=== PATIENT | female | born 1995 | race African-American/Black ===

== ENCOUNTER 2017-09-21 23:47 | Emergency (ER) | payer OTHER ==
[2017-09-21 23:55] VITALS: BP 103/54; PULSE 86; TEMP 98.1; BMI 21.6
--- NOTE | 2017-09-22 00:19 | PDOC ---
History of Present Illness - History of Present Illness Initial Comments: 09/22/17 00:23 The patient is a 22 year old female, with no significant PMH, who presents to the emergency department with 2 hours of right arm pain. The patient states she was driving when she noticed the right arm pain prompting her to snout puller and check her arm. The patient states she noticed a lump on the right upper extremity which prompted her to come to the ED for evaluation. The patient denies any recent injuries or trauma. The patient denies chest pain, shortness of breath, headache and dizziness. Denies fever, chills, nausea, vomit, diarrhea and constipation. Denies dysuria, frequency, urgency and hematuria. Allergies: Penicillins Past surgical history: <Jeovanny Matthews - Last Filed: 09/22/17 00:27> - General History Source: Patient <Colt Alvarez - Last Filed: 09/22/17 00:56> - General Chief Complaint: Pain, Acute Stated Complaint: LUMP ON RT ARM Time Seen by Provider: 09/21/17 23:59 Past History <Jeovanny Matthews - Last Filed: 09/22/17 00:27> - Past Medical History Asthma: No Cancer: No Cardiac Disorders: No COPD: No Diabetes: No HTN: No Seizures: No Thyroid Disease: No - Suicide/Smoking/Psychosocial Hx Smoking History: Never smoked Have you smoked in the past 12 months: No Hx Alcohol Use: No Drug/Substance Use Hx: No Substance Use Type: None Hx Substance Use Treatment: No <Colt Alvarez - Last Filed: 09/22/17 00:56> - Past Medical History Allergies/Adverse Reactions: Allergies Allergy/AdvReac Type Severity Reaction Status Date / Time Penicillins Allergy Verified 09/21/17 23:54 Home Medications: Ambulatory Orders No Home Medications 0 dose .ROUTE UTDICT 07/07/13 Review of Systems - Review of Systems Comments:: 09/22/17 00:23 CONSTITUTIONAL: Absent: fever, no chills, no fatigue EYES: Absent: visual changes ENT: Absent: ear pain, no sore throat CARDIOVASCULAR: Absent: chest pain, no palpitations RESPIRATORY: Absent: cough, no SOB GI: Absent: abdominal pain, no nausea, no vomiting, no constipation, no diarrhea GENITOURINARY: Absent: dysuria, no frequency, no hematuria MUSKULOSKELETAL: Present: (+) Right upper extremity lump and pain. Absent: back pain, no arthralgia. SKIN: Absent: rash NEURO: Absent: headache <Jeovanny Matthews - Last Filed: 09/22/17 00:27> *Physical Exam - Vital Signs Last Vital Signs Temp Pulse Resp BP Pulse Ox 98.1 F 86 18 103/54 100 09/21/17 23:53 09/21/17 23:53 09/21/17 23:53 09/21/17 23:53 09/21/17 23:53 - Physical Exam Comments: 09/22/17 00:27 GENERAL: Well-appearing, well-nourished. No apparent distress. HEENT: Normocephalic, atraumatic. PERRL, EOM intact. CARDIOVASCULAR: Normal S1, S2. Regular rate and rhythm. PULMONARY: Clear to auscultation bilaterally. ABDOMEN: Soft, non-distended, non-tender. EXTREMITIES: +Slight ecchymosis RUE. Normal ROM in all four extremities. No gross deformities. SKIN: Warm, dry. No rash NEUROLOGICAL: No focal neurological deficits. <Jeovanny Matthews - Last Filed: 09/22/17 00:27> - Vital Signs Last Vital Signs Temp Pulse Resp BP Pulse Ox 98.1 F 86 18 103/54 100 09/21/17 23:53 09/21/17 23:53 09/21/17 23:53 09/21/17 23:53 09/21/17 23:53 <Colt Alvarez - Last Filed: 09/22/17 00:56> *DC/Admit/Observation/Transfer - Attestations Scribe Attestion: 09/22/17 00:24 Documentation prepared by Jeovanny Matthews, acting as infertility medical assistant for Colt Alvarez DO. <Jeovanny Matthews - Last Filed: 09/22/17 00:27> - Discharge Dispostion Decision to Admit order: No <Colt Alvarez - Last Filed: 09/22/17 00:56> Diagnosis at time of Disposition: Hematoma - Discharge Dispostion Disposition: HOME Condition at time of disposition: Stable - Referrals Referrals: Kalyn Alanis MD [Staff Physician] - - Patient Instructions Printed Discharge Instructions: DI for Hematoma (Bruise) Additional Instructions: Apply ice to area to make it feel better. Return if area becomes painful and hot.
== END 2017-09-22 01:08 | disposition home or self-care (01) ==
LOC: JER 23:47
DX: S40.021A Contusion of right upper arm, initial encounter (principal); X58.XXXA Exposure to other specified factors, initial encounter; Y93.9 Activity, unspecified; Y92.810 Car as the place of occurrence of the external cause; Y99.8 Other external cause status
CPT/HCPCS: 99281-25

== ENCOUNTER 2017-11-20 11:41 | Emergency (ER) | payer OTHER ==
[2017-11-20 11:52] VITALS: BP 120/59; PULSE 100; TEMP 100; BMI 21.9
--- NOTE | 2017-11-20 12:12 | PDOC ---
History of Present Illness - General Chief Complaint: Sore Throat Stated Complaint: SORE THROAT, SOB - History of Present Illness Initial Comments: 22-year-old female presents for evaluation of sore throat and earache 2 days. She first noticed it after coming back from her cruise. She has no other associated symptoms. 11/20/17 12:10 Past History - Past Medical History Allergies/Adverse Reactions: Allergies Allergy/AdvReac Type Severity Reaction Status Date / Time Penicillins Allergy Verified 11/20/17 11:49 Home Medications: Ambulatory Orders No Home Medications 0 dose .ROUTE UTDICT 07/07/13 Asthma: No Cancer: No Cardiac Disorders: No COPD: No DVT: No Diabetes: No HTN: No Seizures: No Thyroid Disease: No - Suicide/Smoking/Psychosocial Hx Smoking History: Never smoked Have you smoked in the past 12 months: No Information on smoking cessation initiated: No Hx Alcohol Use: No Drug/Substance Use Hx: No Substance Use Type: None Hx Substance Use Treatment: No Review of Systems - Review of Systems HEENTM: Yes: Ear Pain, Throat Pain All Other Systems: Reviewed and Negative *Physical Exam - Vital Signs Last Vital Signs Temp Pulse Resp BP Pulse Ox 100.0 F H 100 H 18 120/59 100 11/20/17 11:50 11/20/17 11:50 11/20/17 11:50 11/20/17 11:50 11/20/17 11:50 - Physical Exam Comments: HEAD: NC/AT EYES: Conjuntiva clear Ears: Canals and TM's normal NOSE: No d/c THROAT: Moist mucous membrances, oral pharanx clear, uvula midline NECK: Supple without adenopathy CARDIAC: S1 S2 LUNGS: CTA Full and Equal breath sounds ABDOMEN: Soft NT ND MS: Full ROM in all joints without edema NEUROLOGIC: No gross sensory or motor deficits, NVID SKIN: Normal color and temperature no lesions or rashes 11/20/17 12:11 Medical Decision Making - Medical Decision Making This is a 22-year-old female with an upper respiratory infection I do not see the reason for antibiotics at this point she has basically a benign examination advised on Tylenol and Motrin and follow-up with her PCP. 11/20/17 12:11 *DC/Admit/Observation/Transfer Diagnosis at time of Disposition: URI (upper respiratory infection) - Discharge Dispostion Disposition: HOME Condition at time of disposition: Stable Decision to Admit order: No - Referrals Referrals: Maria Luisa Mariano MD [Primary Care Provider] - - Patient Instructions Printed Discharge Instructions: DI for Viral Upper Respiratory Infection -- Adult Additional Instructions: Return to the emergency room should symptoms worsen or go unresolved. Follow-up with her primary care physician in one to 2 days for further evaluation and treatment options. He may continue to take Tylenol and Motrin for any discomfort. - Post Discharge Activity
== END 2017-11-20 12:15 | disposition home or self-care (01) ==
LOC: JERFT 11:41
DX: J06.9 Acute upper respiratory infection, unspecified (principal)
CPT/HCPCS: 99281-25

== ENCOUNTER 2019-08-29 12:20 | Inpatient (IN) | payer OTHER ==
[2019-08-29 13:10] LABS: BASO % 0.3 % (0-2.0); EOS % 0.3 % (0-4.5); HEMATOCRIT 34.3 % (32.4-45.2); HEMOGLOBIN 11.1 GM/dL (10.7-15.3); LYMPH % 11.2 % (8-40); MCH 26.9 pg (25.7-33.7); MCHC 32.5 g/dl (32.0-36.0); MONO % 5.1 % (3.8-10.2); NEUT % 83.1 % (42.8-82.8); PLATELET COUNT 179 K/MM3 (134-434); RBC 4.14 M/mm3 (3.60-5.2); RDW 13.6 % (11.6-15.6); WHITE BLOOD COUNT 11.2 K/mm3 (4.0-10.0)
[2019-08-29 13:16] LABS: INR 0.96 (0.83-1.09); PROTHROMBIN TIME (PATIENT) 11.3 SEC (9.7-13.0)
[2019-08-29 13:19] LABS: ACTIVATED PTT 26.7 SECONDS (25.2-36.5)
[2019-08-29 13:27] VITALS: BMI 25.0
[2019-08-29 13:46] LABS: BLOOD UREA NITROGEN 10.4 mg/dL (7-18); CREATININE 0.6 mg/dL (0.55-1.3); POTASSIUM 3.5 mmol/L (3.5-5.1)
[2019-08-29 13:47] LABS: CALCIUM 8.5 mg/dL (8.5-10.1)
[2019-08-29] MEDS ORDERED: ELECTROLYTE-148 SOLN 1,000 ML IV SCH ×2 (14:00→14:30)
[2019-08-29] MEDS ORDERED: CITRIC ACID/SODIUM CITRATE 30 ML UNIT-DOSE CUP PO ONE (14:21)
[2019-08-29] MEDS ORDERED: SIMETHICONE 80 MG TAB.CHEW (FP) PO PRN (14:22)
[2019-08-29] MEDS ORDERED: diphenhydrAMINE HCL 25 MG CAPSULE (FP) PO PRN (14:22)
[2019-08-29] MEDS ORDERED: BENZOCAINE 28 GM HEMORRHOIDAL OINTMENT TP PRN (14:22)
[2019-08-29] MEDS ORDERED: METHYLERGONOVINE MALEATE 0.2 MG/1 ML AMP IM PRN (14:22)
[2019-08-29] MEDS ORDERED: WITCH HAZEL 50% (TUCKS) 40 PAD/JAR PAD TP PRN (14:22)
[2019-08-29] MEDS ORDERED: BENZOCAINE 20% 57 GM BOTTLE TP PRN (14:22)
[2019-08-29] MEDS ORDERED: morphine SULFATE/PF 0.5 MG/ML (2cc Syringe - QUVA) ONE (14:44)
[2019-08-29] MEDS ORDERED: ePHEDrine SULFATE 50 MG/1 ML AMPULE ONE (14:45)
[2019-08-29] MEDS ORDERED: OXYTOCIN 20 UNITS in 0.9% NS 40 UNIT/2,000 ML INFUS.BAG IV ONE (14:53)
[2019-08-29] MEDS ORDERED: CLINDAMYCIN PHOSPHATE 600 MG/4 ML VIAL ONE (15:14)
[2019-08-29 15:16] LABS: SYPHILIS W/ RPR CONF NON-REACTIVE (NONREACTIVE)
[2019-08-29 15:45] LABS: HIV INTERPRETATION NEGATIVE (NEGATIVE)
[2019-08-29] MEDS ORDERED: morphine SULFATE/PF 0.5 MG/ML (2cc Syringe - QUVA) SPIN ONE (16:02)
[2019-08-29] MEDS ORDERED: ONDANSETRON 4 MG/2 ML VIAL IVPUSH PRN (16:02)
[2019-08-29] MEDS ORDERED: IBUPROFEN 800 MG/8 ML IJ IVPB ONE (17:06)
[2019-08-29] MEDS ORDERED: OXYTOCIN 20 UNITS in 0.9% NS 20 UNIT/1,000 ML INFUS.BAG IV SCH (17:15)
[2019-08-29] MEDS: IBUPROFEN 800 MG/8 ML IJ IVPB PRN (17:15)
[2019-08-30] MEDS: IBUPROFEN 800 MG/8 ML IJ IVPB PRN (05:29)
[2019-08-30 08:10] LABS: HEMATOCRIT 29.2 % (32.4-45.2); HEMOGLOBIN 9.6 GM/dL (10.7-15.3); MCH 27.3 pg (25.7-33.7); MEAN CELL VOLUME 82.7 fl (80-96); MEAN PLT VOLUME 9.8 fl (7.5-11.1); PLATELET COUNT 178 K/MM3 (134-434); RBC 3.53 M/mm3 (3.60-5.2); RDW 13.6 % (11.6-15.6); WHITE BLOOD COUNT 9.5 K/mm3 (4.0-10.0)
[2019-08-30] MEDS ORDERED: oxyCODONE HCL 5 MG TABLET PO PRN (14:22)
[2019-08-30] MEDS ORDERED: BISACODYL 10 MG SUPP.RECT PR PRN (14:22)
[2019-08-30] MEDS: ACETAMINOPHEN 325 MG TABLET (FP) PO PRN (14:33)
[2019-08-30] MEDS: oxyCODONE HCL 5 MG TABLET PO PRN ×2 (14:34→21:00)
[2019-08-30] MEDS: IBUPROFEN 600 MG TABLET (FP) PO PRN (20:59)
[2019-08-31] MEDS: ACETAMINOPHEN 325 MG TABLET (FP) PO PRN (05:41)
[2019-08-31] MEDS: IBUPROFEN 600 MG TABLET (FP) PO PRN (05:41)
[2019-08-31 12:08] VITALS: BP 118/61; PULSE 99; TEMP 98.5
[2019-08-31] MEDS ORDERED: SENNOSIDES/DOCUSATE COMBO (SENNA PLUS) TABLET (UD) PO PRN (22:00)
== END 2019-08-31 14:30 | disposition home or self-care (01) | DRG 788 ==
LOC: JLDR 12:20 → J3W 17:18
PROVIDERS: ADMIT Obstetrics & Gynecology; ATTEND Obstetrics & Gynecology
PROC: 10D00Z1 Extraction of Products of Conception, Low, Open Approach (ICD-10-PCS; principal; 2019-08-29)
DX: O48.0 Post-term pregnancy (principal); O34.211 Maternal care for low transverse scar from previous cesarean delivery; Z37.0 Single live birth; Z3A.40 40 weeks gestation of pregnancy; O90.81 Anemia of the puerperium; D64.9 Anemia, unspecified; O69.89X0 Labor and delivery complicated by other cord complications, not applicable or unspecified
CPT/HCPCS: 36415; 36600; 80048; 82803; 85025; 85027; 85610; 85730; 86780; 86850; 86900; 86901; 87389; 88307-TC

== ENCOUNTER 2022-04-17 11:31 | Emergency (ER) | payer OTHER ==
[2022-04-17 11:43] VITALS: BP 120/62; PULSE 94; RESP 18; TEMP 99.5; BMI 23.5
== END 2022-04-17 13:41 | disposition home or self-care (01) ==
LOC: JER 11:31
DX: U07.1 COVID-19 (principal); R05.1 Acute cough; R09.81 Nasal congestion
CPT/HCPCS: 0241U-QW; 99283-25